=== PATIENT | female | born 1985 | race Caucasian/White ===

== ENCOUNTER 2016-08-30 16:58 | Emergency (ER) | payer OTHER ==
[2016-08-30 18:09] LABS: THYROID STIMULATING HORMONE 1.85 uIU/mL (0.47-4.68)
--- NOTE | 2016-08-30 18:54 | ER NURSING DOCUMENTATION ---
Nurse's Notes [facility] Name:Urmila Pacheco Age:31 yrs Sex:Female :1985 Arrival Date:08/30/2016 Time:16:58 Bed4 Private MD: Diagnosis:Palpitations Presentation: 08/30 17:00 Presenting complaint: Patient states: feeling palpatations. Transition of care: patient sc1 was not received from another setting of care. Notified ED Physician of patient's arrival and CC Dr. Iqbal notified. 17:00 Method Of Arrival: Private Vehicle sc1 17:01 Acuity: YONIS 3 rh Triage Assessment: 17:11 General: Appears in no apparent distress, well developed, well nourished, well groomed, sc1 Behavior is cooperative, pleasant. Pain: Denies pain. Historical: - Allergies: No known drug Allergies; - Home Meds: 1. Vitamin Oral 2. CONTROL - PMHx: HYPERHTYROIDISM; - PSHx: ; Appendectomy; - Tetanus: < 10 years. - Ebola Screening: : Patient negative for fever greater than or equal to 101.5 degrees Fahrenheit, and additional compatible Ebola Virus Disease symptoms. - Immunization history: Flu Vaccine < 1 year. - Social history: Smoking status: Patient states was never smoker of tobacco. Screenin:07 Infectious Disease Risk None. Abuse screen: Denies threats or abuse. Denies injuries rh from another. Nutritional screening: No deficits noted. Vital Signs: 17:06 BP 133 / 92; Pulse 102; Resp 16; Temp 97.7; Pulse Ox 97% ; Weight 77.11 kg; Height 5 rh ft. 6 in. (167.64 cm); Pain 1/10; 17:06 Body Mass Index 27.44 (77.11 kg, 167.64 cm) rh ED Course: 17:00 Patient arrived in ED. ama 17:00 equipment monitor phototypesetting on. Pulse ox on. NIBP on. rh 17:01 Triage completed. rh 17:07 Valuables Remains with patient Patient has correct armband on for positive rh identification. Placed in gown. Bed in low position. Call light in reach. Side rails up X 1. 17:08 EKG done per protocol. Performed by ED Staff. Shown to ED physician. st 17:09 Mcleod, Sadie, RN is Primary Nurse. [facility] 17:25 Nithin Iqbal MD is Attending Physician. mn 18:56 EKG attached [facility] Administered Medications: No medications were administered Point of Care Testing: Urine Dip: 17:42 pH: 6.0; ; Specific [place]: 1.005; Ketones: Negative; Glucose: Negative; Protein: [facility] Negative; Leukocytes: Negative; Nitrite: Negative ; Blood: Negative; Bilirubin: Negative ; Urobilinogen: Normal Outcome: 18:34 Discharge ordered by . mn 18:51 Discharged to home ambulatory. [facility] 18:51 Condition: stable 18:51 Discharge instructions given to patient, Instructed on discharge instructions, follow up and referral plans. Demonstrated understanding of instructions. 18:53 Patient left the ED. [facility] 08/31 09:13 Discharge F/U Call: Unable to reach: no answer st Signatures: Kim Joshi RN RN st Campbell, Sandy, RN RN [facility] Nithin Iqbal MD MD sc Averdick, Andrew, Urmila Sheehan
--- NOTE | 2016-08-30 18:54 | ER PHYSICIAN DOCUMENTATION ---
Physician Documentation [facility] Name:Urmila Pacheco Age:31 yrs Sex:Female :1985 Arrival Date:08/30/2016 Time:16:58 Bed4 Private MD: Nithin Suarez Disposition: 08/30/16 18:34 Discharged to Home/Self Care. Impression: Palpitations. - Condition is Good. - Discharge Instructions: PALPITATIONS. - Medical Reconciliation form form. - Follow up: Private Physician; When: 1 week; Reason: Recheck today's complaints. - Problem is new. - Symptoms are resolved. HPI: 08/30 17:41 This 31 yrs old Female presents to ER with complaints of Palpitations. sc 17:41 The patient presents with a history of irregular heart beat. Context: The symptoms sc occur at rest. Onset: The symptom(s)/episode began/occurred today. Duration: The patient or guardian reports multiple episodes, the episodes last approximately 10 second(s). Modifying factors: The symptoms are aggravated by nothing. Associated signs and symptoms: The patient has no apparent associated signs or symptoms, Pertinent positives: unusual stressors, new baby with congestion, at altitude, visiting in-laws, Pertinent negatives: anxiety, chest pain, lightheadedness, nausea, SOB, syncope. Severity of symptoms: At their worst the symptoms were very mild. The patient has experienced a previous episode, dxd with hyperthyroid during . Historical: - Allergies: No known drug Allergies; - Home Meds: 1. Vitamin Oral 2. CONTROL - PMHx: HYPERHTYROIDISM; - PSHx: ; Appendectomy; - Tetanus: < 10 years. - Ebola Screening: : Patient negative for fever greater than or equal to 101.5 degrees Fahrenheit, and additional compatible Ebola Virus Disease symptoms. - Immunization history: Flu Vaccine < 1 year. - Social history: Smoking status: Patient states was never smoker of tobacco. ROS: 17:43 Constitutional: Negative for fever, chills, and weight loss. sc Eyes: Negative for injury, pain, redness, and discharge. ENT: Negative for injury, pain, and discharge. Neck: Negative for injury, pain, and swelling. Respiratory: Negative for shortness of breath, cough, wheezing, and pleuritic chest pain. Abdomen/GI: Negative for abdominal pain, nausea, vomiting, diarrhea, and constipation. Back: Negative for injury and pain. MS/Extremity: Negative for injury and deformity. Skin: Negative for injury, rash, and discoloration. 17:43 Neuro: Negative for headache, weakness, numbness, tingling, and seizure. sc 17:43 Cardiovascular: Positive for palpitations. Exam: Constitutional: This is a well developed, well nourished patient who is awake, alert, and in no acute distress. Head/Face: Normocephalic, atraumatic. Eyes: Pupils equal round and reactive to light, extra-ocular motions intact. Lids and lashes normal. Conjunctiva and sclera are non-icteric and not injected. Cornea within normal limits. Periorbital areas with no swelling, redness, or edema. Neck: Trachea midline, no thyromegaly or masses palpated, and no cervical lymphadenopathy. Supple, full range of motion without nuchal rigidity, or vertebral point tenderness. No meningismus. Chest/axilla: Normal chest wall appearance and motion. Nontender with no deformity. No lesions are appreciated. Abdomen/GI: Soft, non-tender, with normal bowel sounds. No distension or tympany. No guarding or rebound. No evidence of tenderness throughout. Back: No spinal tenderness. No costovertebral tenderness. Full range of motion. Skin: Warm, dry with normal turgor. Normal color with no rashes, no lesions, and no evidence of cellulitis. Neuro: Awake and alert, GCS 15, oriented to person, place, time, and situation. Cranial nerves II-XII grossly intact. Motor strength 5/5 in all extremities. Sensory grossly intact. Cerebellar exam normal. Normal gait. 17:43 Psych: Awake, alert, with orientation to person, place and time. Behavior, mood, and sc affect are within normal limits. 17:43 Cardiovascular: Rate: normal, Rhythm: regular, Heart sounds: normal, normal S1and S2, no murmur, no rub, no gallop, Edema: is not appreciated, no pretibial edema. 17:43 Respiratory: the patient does not display signs of respiratory distress, Respirations: normal, Breath sounds: are normal, clear throughout. Vital Signs: 17:06 BP 133 / 92; Pulse 102; Resp 16; Temp 97.7; Pulse Ox 97% ; Weight 77.11 kg; Height 5 rh ft. 6 in. (167.64 cm); Pain 1/10; 17:06 Body Mass Index 27.44 (77.11 kg, 167.64 cm) rh MDM: 17:25 Patient medically screened. wv 17:44 Differential diagnosis: arrythmia, dehydration, stress disorder, hyperthyroid or sc ?. Data reviewed: vital signs, nurses notes, lab test result(s), EKG, and as a result, I will continue to observe the patient. ECG:. ED course: rare pac on monitor, mostly asymptomatic <1/minute. 18:56 EKG attached [facility] [place] [place] 08/30 18:02 Order name: HCG, SERUM; Complete Time: 18:33 EDMS 06/ 18:33 Interpretation: Normal. wv 08/30 18:10 Order name: THYROID STIMULATING HORMONE; Complete Time: 18:33 EDMS 08/30 18:33 Interpretation: Normal. wv / 17:12 Order name: EKG - 12 Lead; Complete Time: 17:13 [facility] [place], [place] 08/30 17:43 Order name: Urine Dip; Complete Time: 17:43 sc1 EC:44 Rate is 89 beats/min. Rhythm is regular. QRS [place] is Normal. MS interval is normal. QRS sc interval is normal. QT interval is normal. No Q waves. T waves are Normal. No ST changes noted. Clinical impression: Normal ECG. Interpreted by me. Reviewed by me. Dispensed Medications: No medications were administered Point of Care Testing: Urine Dip: 17:42 pH: 6.0; ; Specific [place]: 1.005; Ketones: Negative; Glucose: Negative; Protein: sc1 Negative; Leukocytes: Negative; Nitrite: Negative ; Blood: Negative; Bilirubin: Negative ; Urobilinogen: Normal Signatures: Sadie Mcleod RN RN [facility] [place], [place] Nithin Iqbal MD MD wv [place], Urmila
== END 2016-08-30 18:54 | disposition home or self-care (01) ==
LOC: ER 16:58
DX: R00.2 Palpitations (principal)
CPT/HCPCS: 36415; 84443; 84703; 93005; 99284